=== PATIENT | male | born 1965 | race Caucasian/White ===

== ENCOUNTER → 2020-11-19 | Outpatient (CLI) | payer OTHER ==
--- NOTE | 2020-11-19 10:45 | KCIC ---
EXAM: CT coronary artery calcium screening; radiologist over read. HISTORY: Coronary artery calcium screening. Family history of heart disease. TECHNIQUE: Computed tomographic images of the chest were obtained without contrast. Multiplanar refor matting was performed. *One or more of the following individualized dose reduction techniques were utilized for this examina tion: 1. Automated exposure control. 2. Adjustment of the mA and/or kV according to patient size. 3. Use of iterative reconstruction technique. COMPARISON: None. FINDINGS: The heart is normal in size. The aorta is normal in caliber. There is no infiltrate, pleura l effusion or pneumothorax. There is no suspicious pulmonary nodule. There is no lymphadenopathy. The re is no acute finding involving the upper abdomen. There is no acute or suspicious osseous finding. Coronary artery calcium score: 0. IMPRESSION: 1. Coronary artery calcium score of 0. No identifiable calcified atherosclerotic plaque. 2. No significant incidental thoracic finding. Electronically signed by: Rosa Isela Bryan MD (11/19/2020 10:42 AM) [id number]
== END ==
LOC: KCIC CT 08:06
PROVIDERS: ATTEND Family Medicine
DX: Z13.6 Encounter for screening for cardiovascular disorders (principal)
CPT/HCPCS: 75571